=== PATIENT | male | born 1990 | race Caucasian/White ===

== ENCOUNTER 2025-01-15 18:28 | Emergency (ER) | payer OTHER ==
[~2025-01-15] VITALS: Ht 175.2 cm; Wt 93.0 kg
== END 2025-01-15 20:31 | disposition left against medical advice (07) ==
LOC: ED 18:28
DX: M79.651 Pain in right thigh (principal); Z53.21 Procedure and treatment not carried out due to patient leaving prior to being seen by health care provider; V49.3XXA Car occupant (driver) (passenger) injured in unspecified nontraffic accident, initial encounter; Y93.89 Activity, other specified; Y92.89 Other specified places as the place of occurrence of the external cause; Y99.8 Other external cause status